=== PATIENT | female | born 1995 | race Caucasian/White ===

== ENCOUNTER 2019-02-19 13:41 | Emergency (ER) | payer OTHER ==
[~2019-02-19] VITALS: Ht 175.3 cm; Wt 135.0 kg
[~2019-02-19 13:41] MED LIST: AMOXICILLIN500 MG PO; FLUARIX QUADRIV1 INJ IM; TESSALON200 MG PO
[2019-02-19 14:15] VITALS: BP 156/106
[2019-02-20] MEDS ORDERED: OMNICEF300 M1 PO (10:40)
[2019-02-20] MEDS ORDERED: CLINDAMYCIN300 M1 PO (10:40)
== END 2019-02-19 14:15 | disposition home or self-care (01) ==
LOC: ED 13:41
DX: S30.23XA Contusion of vagina and vulva, initial encounter (principal); X58.XXXA Exposure to other specified factors, initial encounter; Y93.89 Activity, other specified

== ENCOUNTER 2019-02-20 09:59 | Emergency (ER) | payer OTHER ==
[~2019-02-20] VITALS: Ht 175.3 cm; Wt 118.0 kg
[2019-02-20] MEDS ORDERED: CLINDAMYCIN300 M1 PO (10:40)
[2019-02-20] MEDS ORDERED: OMNICEF300 M1 PO (10:40)
[2019-02-20 10:44] VITALS: BP 128/61
== END 2019-02-20 11:10 | disposition home or self-care (01) ==
LOC: ED 09:59
DX: O23.593 Infection of other part of genital tract in pregnancy, third trimester (principal); B96.20 Unspecified Escherichia coli [E. coli] as the cause of diseases classified elsewhere; Z3A.29 29 weeks gestation of pregnancy

== ENCOUNTER 2019-02-22 10:16 | Emergency (ER) | payer OTHER ==
[~2019-02-22] VITALS: Ht 175.3 cm; Wt 100.0 kg
[~2019-02-22 10:16] MED LIST changes: +CLINDAMYCIN300 M1 PO; +OMNICEF300 M1 PO
[2019-02-22] MEDS ORDERED: CALNA PO (11:15)
[2019-02-22 12:03] VITALS: BP 141/86
== END 2019-02-22 12:03 | disposition home or self-care (01) ==
LOC: ED 10:16
DX: Z48.01 Encounter for change or removal of surgical wound dressing (principal)

== ENCOUNTER 2019-03-18 13:58 | Emergency (ER) | payer OTHER ==
[~2019-03-18] VITALS: Ht 175.3 cm; Wt 115.0 kg
[~2019-03-18 13:58] MED LIST changes: +CALNA PO
[2019-03-18 14:44] LABS: HEMATOCRIT 33.6 % (37.0-47.0); IMMATURE GRANULOCYTES 0.6 % (0.0-5.0); MEAN CELL VOLUME 88.2 fL CALC (80.0-100.0); MEAN CORPUSCULAR HGB 28.9 pG CALC (26.0-32.0); MEAN CORPUSCULAR HGB CONC 32.7 g/L CALC (32.0-36.0); NEUT# 13.38 thou/uL (2.00-7.15); RED BLOOD COUNT 3.81 mill/uL (4.20-5.60); RED CELL DISTRI WIDTH 12.7 % (11.5-15.5)
[2019-03-18 15:22] LABS: ALKALINE PHOSPHATASE 177 u/l (38-126); BUN 3 mg/dL (7-17); BUN/CREATININE RATIO 6 (12-20 (CALC)); CHLORIDE 106 mmol/l (95-108); CREATININE 0.5 mg/dL (0.5-1.0); GFR > 60 ML/MIN (>=60 (CALC)); GFR FOR AFR.AMER. > 60 ML/MIN (>=60 (CALC)); SGOT/AST 18 u/l (14-36); SODIUM 136 mmol/l (137-146); TOTAL PROTEIN 6.6 g/dL (6.3-8.2)
[2019-03-18 15:25] LABS: ALBUMIN 3.4 g/dL (3.2-5.0); ANION GAP 16 (6-22 (CALC)); BILIRUBIN, TOTAL 1.6 mg/dL (0.0-1.4); CARBON DIOXIDE 18 mmol/l (22-30)
[2019-03-18 16:10] LABS: URINE BLOOD DIPSTICK SMALL (NEGATIVE); URINE COLOR YELLOW; URINE GLUCOSE - DIPSTICK 100 mg/dL (NEGATIVE); URINE KETONE >=80 mg/dL (NEGATIVE); URINE PROTEIN - DIPSTICK >=300 mg/dL (NEG-TRACE); URINE SPECIFIC GRAVITY 1.025; URINE UROBILINOGEN - DIPSTICK >=8.0 E.U./dL (0.2)
[2019-03-18 16:14] LABS: URINE BILIRUBIN - DIPSTICK LARGE (NEGATIVE); URINE LEUK ESTERASE MODERATE (NEGATIVE); URINE NITRITE - DIPSTICK POSITIVE (Negative)
[2019-03-18 16:19] LABS: URINE SQUAMOUS EPITHELIAL CELL FEW EPI/hpf (0-FEW); URINE WBC TNTC WBC/hpf (0-5)
[2019-03-18 16:20] LABS: URINE BACTERIA MANY hpf
[2019-03-18] MEDS ORDERED: KEFLEX500 M1 PO (16:30)
[2019-03-18 17:30] VITALS: BP 103/59
== END 2019-03-18 17:30 | disposition home or self-care (01) ==
LOC: ED 13:58
PROVIDERS: Emergency Medicine
DX: O23.43 Unspecified infection of urinary tract in pregnancy, third trimester (principal); B96.20 Unspecified Escherichia coli [E. coli] as the cause of diseases classified elsewhere; Z3A.33 33 weeks gestation of pregnancy; R11.10 Vomiting, unspecified; R50.9 Fever, unspecified; R30.0 Dysuria

== ENCOUNTER 2019-06-23 02:32 | Emergency (ER) | payer OTHER ==
[~2019-06-23] VITALS: Ht 175.3 cm; Wt 109.9 kg
[~2019-06-23 02:32] MED LIST changes: +KEFLEX500 M1 PO
[2019-06-23 03:31] LABS: URINE BILIRUBIN - DIPSTICK NEGATIVE (NEGATIVE); URINE BLOOD DIPSTICK NEGATIVE (NEGATIVE); URINE COLOR YELLOW; URINE GLUCOSE - DIPSTICK NEGATIVE (NEGATIVE); URINE KETONE NEGATIVE (NEGATIVE); URINE LEUK ESTERASE NEGATIVE (NEGATIVE); URINE NITRITE - DIPSTICK NEGATIVE (Negative); URINE PROTEIN - DIPSTICK NEGATIVE (NEG-TRACE); URINE UROBILINOGEN - DIPSTICK 0.2 E.U./dL (0.2)
[2019-06-23] MEDS ORDERED: FLEXERIL PO (04:09)
[2019-06-23] MEDS ORDERED: IBUPROFEN600 MG PO (04:09)
[2019-06-23 04:26] VITALS: BP 128/70
== END 2019-06-23 04:26 | disposition home or self-care (01) ==
LOC: ED 02:32
DX: M54.5 Low back pain (principal)

== ENCOUNTER 2024-12-07 13:40 | Emergency (ER) | payer SELFPAY ==
[~2024-12-07] VITALS: Ht 175.3 cm; Wt 170.2 kg
[~2024-12-07 13:40] MED LIST changes: +FLEXERIL PO; +IBUPROFEN600 MG PO
[2024-12-07 14:14] VITALS: BP 159/106
[2024-12-07 15:44] VITALS: BP 159/106
== END 2024-12-07 15:44 | disposition home or self-care (01) | DRG 563 ==
LOC: ED 13:40
DX: S63.610A Unspecified sprain of right index finger, initial encounter (principal); X58.XXXA Exposure to other specified factors, initial encounter; Y93.89 Activity, other specified; Y92.009 Unspecified place in unspecified non-institutional (private) residence as the place of occurrence of the external cause